=== PATIENT | male | born 1935 | race Caucasian/White ===

== ENCOUNTER → 2016-11-13 | Outpatient (CLI) | payer MEDICARE ==
[~2016-11-13] MED LIST: ALBU6.7H INH; CLIN150 PO; FURO20 PO; LISI-363 PO; POTA-243 PO
[2016-11-13 13:04] LABS: HEMATOCRIT 38.7 % (39.0-51.0); MEAN CELL VOLUME 91.1 FL (80.0-100.0); MEAN CORPUSCULAR HEMOGLOBIN 30.8 PG (27.0-34.0); MEAN CORPUSCULAR HGB CONC 33.9 % (32.0-36.0); PLATELET COUNT 320 TH/MM3 (150-450); RED BLOOD COUNT 4.25 MIL/MM3 (4.50-5.90); RED CELL DISTRIBUTION WIDTH 15.7 % (11.6-17.2); REVIEW FLAG FINAL; WHITE BLOOD COUNT 10.9 TH/MM3 (4.0-11.0)
[2016-11-13 13:10] LABS: BLOOD, URINE NEG (NEG); GLUCOSE,URINE NEG (NEG); KETONE, URINE NEG (NEG); MUCUS URINE FEW /lpf (OCC); NITRITE,URINE NEG (NEG); TRANSITIONAL EPI CELLS, URINE <1 /hpf; URINE COLOR YELLOW (YELLW/STRAW)
[2016-11-13 13:38] LABS: ALKALINE PHOSPHATASE 49 U/L (45-117); ALT (GPT) 26 U/L (12-78); ANION GAP 7 MEQ/L (5-15); AST (GOT) 11 U/L (15-37); BICARBONATE 30.2 MEQ/L (21.0-32.0); BLOOD UREA NITROGEN 20 MG/DL (7-18); CHLORIDE 101 MEQ/L (98-107); GLOMERULAR FILTRATION RATE 61 ML/MIN (>89); GLUCOSE,FASTING 104 MG/DL (74-99); LDL CHOLESTEROL 89 MG/DL (0-99); LDL CHOLESTEROL DIRECT 99 MG/DL (0-99); POTASSIUM 4.5 MEQ/L (3.5-5.1); SODIUM (NA) 138 MEQ/L (136-145); TOTAL BILIRUBIN ADULT 0.4 MG/DL (0.2-1.0)
== END ==
LOC: PLAB 08:50
PROVIDERS: ATTEND Internal Medicine
DX: E78.5 Hyperlipidemia, unspecified (principal); I10 Essential (primary) hypertension; Z12.5 Encounter for screening for malignant neoplasm of prostate
CPT/HCPCS: 36415; 80053; 80061; 81001; 83721; 85027; G0103

== ENCOUNTER → 2017-03-12 | Outpatient (CLI) | payer MEDICARE ==
[2017-03-12 11:52] LABS: HEMATOCRIT 38.8 % (39.0-51.0); MEAN CELL VOLUME 91.2 FL (80.0-100.0); MEAN CORPUSCULAR HEMOGLOBIN 30.7 PG (27.0-34.0); MEAN CORPUSCULAR HGB CONC 33.6 % (32.0-36.0); PLATELET COUNT 300 TH/MM3 (150-450); RED BLOOD COUNT 4.25 MIL/MM3 (4.50-5.90); REVIEW FLAG FINAL; WHITE BLOOD COUNT 9.6 TH/MM3 (4.0-11.0)
[2017-03-12 12:28] LABS: ANION GAP 6 MEQ/L (5-15); AST (GOT) 18 U/L (15-37); BICARBONATE 29.4 MEQ/L (21.0-32.0); BLOOD UREA NITROGEN 26 MG/DL (7-18); CHLORIDE 105 MEQ/L (98-107); GLOMERULAR FILTRATION RATE 43 ML/MIN (>89); GLUCOSE,FASTING 99 MG/DL (74-99); POTASSIUM 4.6 MEQ/L (3.5-5.1); SODIUM (NA) 140 MEQ/L (136-145)
[2017-03-12 12:32] LABS: ALKALINE PHOSPHATASE 49 U/L (45-117); ALT (GPT) 27 U/L (12-78); HDL CHOLESTEROL 40.6 MG/DL (40.0-60.0); LDL CHOLESTEROL 87 MG/DL (0-99); LDL CHOLESTEROL DIRECT 85 MG/DL (0-99); TOTAL BILIRUBIN ADULT 0.3 MG/DL (0.2-1.0)
== END ==
LOC: PLAB 09:24
PROVIDERS: ATTEND Internal Medicine
DX: I10 Essential (primary) hypertension (principal); E78.5 Hyperlipidemia, unspecified
CPT/HCPCS: 36415; 80053; 80061; 83721; 85027

== ENCOUNTER → 2017-09-10 | Outpatient (CLI) | payer MEDICARE ==
[2017-09-10 13:37] LABS: HEMATOCRIT 40.1 % (39.0-51.0); MEAN CELL VOLUME 93.7 FL (80.0-100.0); MEAN CORPUSCULAR HEMOGLOBIN 31.3 PG (27.0-34.0); MEAN CORPUSCULAR HGB CONC 33.4 % (32.0-36.0); PLATELET COUNT 294 TH/MM3 (150-450); RED BLOOD COUNT 4.28 MIL/MM3 (4.50-5.90); REVIEW FLAG FINAL; WHITE BLOOD COUNT 10.1 TH/MM3 (4.0-11.0)
[2017-09-10 15:31] LABS: ALKALINE PHOSPHATASE 51 U/L (45-117); ALT (GPT) 29 U/L (12-78); AST (GOT) 13 U/L (15-37); BLOOD UREA NITROGEN 19 MG/DL (7-18); CHLORIDE 102 MEQ/L (98-107); GLOMERULAR FILTRATION RATE 59 ML/MIN (>89); GLUCOSE,FASTING 95 MG/DL (74-99); POTASSIUM 4.6 MEQ/L (3.5-5.1); SODIUM (NA) 137 MEQ/L (136-145); TOTAL BILIRUBIN ADULT 0.4 MG/DL (0.2-1.0)
[2017-09-10 15:32] LABS: ANION GAP 7 MEQ/L (5-15); BICARBONATE 28.1 MEQ/L (21.0-32.0); LDL CHOLESTEROL 76 MG/DL (0-99); LDL CHOLESTEROL DIRECT 90 MG/DL (0-99)
== END ==
LOC: PLAB 08:57
PROVIDERS: ATTEND Internal Medicine
DX: I10 Essential (primary) hypertension (principal); E78.5 Hyperlipidemia, unspecified
CPT/HCPCS: 36415; 80053; 80061; 83721; 85027

== ENCOUNTER 2017-11-21 09:01 | Emergency (ER) | payer MEDICARE ==
[~2017-11-21] VITALS: Ht 172.7 cm; Wt 140.0 kg
[2017-11-21 09:10] VITALS: BP 173/74; PULSE 88; RESP 18; TEMP 97.2; O2SAT 92
[2017-11-21] MEDS ORDERED: LISI-515 PO (09:18)
[2017-11-21] MEDS ORDERED: FURO1TAB62 PO (09:18)
--- NOTE | 2017-11-21 10:02 | PD ---
HPI Chief Complaint: Cold / Flu Symptoms Time Seen by Provider: 09:36 Travel History International Travel<30 days: No Contact w/Intl Traveler<30days: No Traveled to known affect area: No History of Present Illness HPI 82-year-old male presents to the ED for evaluation of 6 day history of cough. Occasionally productive of yellow-green mucus. Patient endorses headaches associated with coughing fits. He endorses wheezing. He denies fevers, sinus congestion, rhinorrhea, ear pain, sore throat. He is unsure of sick contacts. He did receive this years flu vaccine. He endorses receiving the pneumonia vaccine. 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 He's been treating at home with OTC medications with no improvement of symptoms. PFSH Past Medical History Hx Anticoagulant Therapy: No Cancer: No Cardiovascular Problems: Yes (HTN) High Cholesterol: Yes Diabetes: No Diminished Hearing: Yes (TINNITIS) Endocrine: No Gastrointestinal Disorders: No Glaucoma: No Genitourinary: No Hepatitis: No Hiatal Hernia: No Hypertension: Yes Immune Disorder: No Implanted Vascular Access Dvce: Yes Musculoskeletal: Yes Neurologic: No Psychiatric: No Reproductive: No Respiratory: No Thyroid Disease: No Influenza Vaccination: Yes Past Surgical History Eye Surgery: Yes (RIGHT CATARACT) Neurologic Surgery: Yes (LAMINECTOMY) Pacemaker: No Other Surgery: Yes Social History Alcohol Use: No Tobacco Use: No (STOP 1955) Substance Use: No Allergies-Medications (Allergen,Severity, Reaction): Coded Allergies: No Known Allergies (Verified Adverse Reaction, Unknown, 11/21/17) Reported Meds & Prescriptions Reported Meds & Active Scripts Active Proair Hfa 8.5 GM Inh (Albuterol Sulfate) 90 Mcg/Act Aer 2 Puff INH Q4-6H PRN 108 mcg/actuation Tessalon Perles (Benzonatate) 100 Mg Cap 200 Mg PO TID PRN Prednisone 20 Mg Tab 40 Mg PO DAILY 5 Days Take 40 mg (2 tablets) daily for 5 days Azithromycin 250 Mg Tab 250 Mg PO DIRECTED Take 2 tabs (500 mg) on day 1 then 1 tab daily x 4 days. Reported Lisinopril 20 Mg Tab 20 Mg PO DAILY Lasix (Furosemide) 20 Mg Tab 20 Mg PO BID Review of Systems Except as stated in HPI: all other systems reviewed are Neg Physical Exam Narrative GENERAL: Well-nourished, well-developed obese white male in no acute distress. SKIN: Warm and dry. HEAD: Normocephalic. Atraumatic. EYES: No scleral icterus. No injection or drainage. PERRLA. EOMI. ENT: Pearly ann tympanic membranes bilaterally. Nasal mucosa is moist. Oropharynx with mild exterior erythema. No edema or exudate. NECK: Supple, trachea midline. No JVD or lymphadenopathy. CARDIOVASCULAR: Regular rate and rhythm without murmurs, gallops, or rubs. N RESPIRATORY: Breath sounds coarse and tight bilaterally.. No accessory muscle use. GASTROINTESTINAL: Abdomen soft, non-tender. BACK: Nontender without obvious deformity. No CVA tenderness. Data Data Last Documented VS Vital Signs Date Time Temp Pulse Resp B/P (MAP) Pulse Ox O2 Delivery O2 Flow Rate FiO2 11/21/17 09:10 97.2 88 18 173/74 (107) 92 Orders Orders Chest, Single Ap (11/21/17 ) Albuterol-Ipratropium Neb (Duoneb Neb) (11/21/17 10:15) Prednisone (Deltasone) (11/21/17 10:15) Ed Discharge Order (11/21/17 10:59) [facility] Medical Decision Making Medical Screen Exam Complete: Yes Emergency Medical Condition: Yes Differential Diagnosis Viral syndrome versus influenza versus bronchitis versus pneumonia versus other Narrative Course 82-year-old male presents to the ED for evaluation of 6 day history of cough,o ccasionally productive of yellow-green mucus. He endorses wheezing. He did receive this years flu vaccine. He endorses receiving the pneumonia vaccine. He endorses industrial exposure to asbestos. No history of COPD. Vitals reviewed. On physical exam is obese white male in no acute distress. ENT exam is unremarkable. He does have diffuse wheezing in bilateral lung hurtado. Patient was administered by mouth steroids and DuoNeb nebs 2. Chest x-ray reveals no acute consolidation. We'll treat for bronchitis. Patient is prescribed a Z-Syed, Proventil inhaler, Tessalon Perles, short course of steroids. He is instructed to follow medications as they're prescribed, follow with his primary care provider, return for worsening symptoms. He indicated understanding of instructions. He is stable and discharged home. Diagnosis Primary Impression: Acute bronchitis Qualified Codes: J20.9 - Acute bronchitis, unspecified Referrals: Primary Care Physician Patient Instructions: Acute Bronchitis (ED), General Instructions Additional Instructions: Rest, hydrate. Push fluids such as sports drinks, Pedialyte, popsicles, clear broth. Offered favorite foods to encourage eating. Take azithromycin as prescribed, until every pill is gone. Pro Air inhaler as needed for continued wheezing and shortness of breath. Take prednisone as prescribed. Tessalon every 8 hours to reduce cough. Alternating Motrin and Tylenol every 4-6 hours as needed for continued fever, body aches. Increase handwashing frequently to avoid the spread of the virus to other family members and the community. Disinfect commonly touched surfaces such as light switches, microwaves, remote controls. Replace toothbrush at the end of this illness. Follow-up with the primary care provider this week. Return to the ED for any urgent or emergent medical condition. Med/Other Pt SpecificInfo: Prescription(s) given Scripts Albuterol 8.5 GM Inh (Proair Hfa 8.5 GM Inh) 90 Mcg/Act Aer 2 PUFF INH Q4-6H Y for SHORTNESS OF BREATH, #1 INHALER 0 Refills 108 mcg/actuation Prov: Anders Christianson MD 11/21/17 Benzonatate (Tessalon Perles) 100 Mg Cap 200 MG PO TID Y for COUGH, #21 CAP 0 Refills Prov: Anders Christianson MD 11/21/17 Prednisone (Prednisone) 20 Mg Tab 40 MG PO DAILY for 5 Days, #10 TAB 0 Refills Take 40 mg (2 tablets) daily for 5 days Prov: Anders Christianson MD 11/21/17 Azithromycin (Azithromycin) 250 Mg Tab 250 MG PO DIRECTED for Infection, #6 TAB 0 Refills Take 2 tabs (500 mg) on day 1 then 1 tab daily x 4 days. Prov: Anders Christianson MD 11/21/17 Disposition: 01 DISCHARGE HOME Condition: Stable Julianne Lynn Nov 21, 2017 10:02
[2017-11-21] MEDS: RESP: ALBUTEROL 2.5 MG/IPRATROPIUM 0.5 MG NEB (SCH) INH (10:12)
[2017-11-21] MEDS ORDERED: predniSONE 20 MG TAB PO ONE (10:15)
[2017-11-21] MEDS ORDERED: PRED20 PO ×2 (10:32→10:35)
[2017-11-21] MEDS ORDERED: BENZ100 PO ×2 (10:32→10:35)
[2017-11-21] MEDS ORDERED: AZIT250T3 PO ×2 (10:32→10:35)
[2017-11-21] MEDS ORDERED: ALBUAER3 INH ×2 (10:32→10:35)
--- NOTE | 2017-11-21 10:55 | RADRPT ---
EXAM DATE/TIME: 11/21/2017 10:42 [facility] COMPARISON: CHEST SINGLE AP, October 24, 2015, 11:36. INDICATIONS : Cough, short of breath. MEDICAL HISTORY : Hypertension. SURGICAL HISTORY : None. ENCOUNTER: Initial ACUITY: 1 week PAIN SCORE: 0/10 LOCATION: Bilateral chest FINDINGS: Moderate bibasilar parenchymal changes with minimal peribronchial thickening. No pneumothorax. No p leural effusion. The heart and pulmonary vascularity are normal. The portion of the bony skeleton vis ualized is unremarkable. CONCLUSION: Minimal bibasilar parenchymal changes, no consolidation or failure. Lui Singer MD FACR on November 21, 2017 at 10:50 Board Certified Radiologist. This report was verified electronically.
== END 2017-11-21 11:11 | disposition home or self-care (01) ==
LOC: PHEFT 09:01
DX: J20.9 Acute bronchitis, unspecified (principal); I10 Essential (primary) hypertension; E78.00 Pure hypercholesterolemia, unspecified
CPT/HCPCS: 71045; 94640; 94664; 99284; J7512

== ENCOUNTER → 2018-03-11 | Outpatient (CLI) | payer MEDICARE ==
[~2018-03-11] MED LIST changes: -ALBU6.7H INH; +ALBUAER3 INH; +AZIT250T3 PO; +BENZ100 PO; -CLIN150 PO; +FURO1TAB62 PO; -FURO20 PO; -LISI-363 PO; +LISI-515 PO; -POTA-243 PO; +PRED20 PO
[2018-03-11 10:27] LABS: HEMATOCRIT 40.2 % (39.0-51.0); HEMOGLOBIN 13.8 GM/DL (13.0-17.0); MEAN CORPUSCULAR HEMOGLOBIN 31.5 PG (27.0-34.0); MEAN CORPUSCULAR HGB CONC 34.2 % (32.0-36.0); MEAN PLATELET VOLUME 8.1 FL (7.0-11.0); PLATELET COUNT 344 TH/MM3 (150-450); RED BLOOD COUNT 4.37 MIL/MM3 (4.50-5.90); RED CELL DISTRIBUTION WIDTH 15.1 % (11.6-17.2); WHITE BLOOD COUNT 9.5 TH/MM3 (4.0-11.0)
[2018-03-11 10:51] LABS: ALBUMIN 3.7 GM/DL (3.4-5.0); AST (GOT) 13 U/L (15-37); BICARBONATE 26.4 MEQ/L (21.0-32.0); BLOOD UREA NITROGEN 22 MG/DL (7-18); CHLORIDE 104 MEQ/L (98-107); CHOLESTEROL 123 MG/DL (120-200); CREATININE 1.23 MG/DL (0.60-1.30); GLOMERULAR FILTRATION RATE 56 ML/MIN (>89); GLUCOSE,FASTING 109 MG/DL (74-99); SODIUM (NA) 138 MEQ/L (136-145)
[2018-03-11 10:57] LABS: ALKALINE PHOSPHATASE 51 U/L (45-117); ALT (GPT) 27 U/L (12-78); CHOLESTEROL/ HDL RATIO 2.99 RATIO; HDL CHOLESTEROL 41.1 MG/DL (40.0-60.0); LDL CHOLESTEROL 73 MG/DL (0-99); LDL CHOLESTEROL DIRECT 84 MG/DL (0-99); TOTAL BILIRUBIN ADULT 0.4 MG/DL (0.2-1.0); TOTAL PROTEIN 7.8 GM/DL (6.4-8.2); TRIGLYCERIDES 47 MG/DL (42-150)
== END ==
LOC: PLAB 07:55
PROVIDERS: ATTEND Internal Medicine
DX: I10 Essential (primary) hypertension (principal)
CPT/HCPCS: 36415; 80053; 80061; 83721; 85027